=== PATIENT | female | born 1960 | race Two or more races ===

== ENCOUNTER 2022-08-13 08:32 | Outpatient (CLI) | payer OTHER | END 2022-08-13 08:45 | disposition home or self-care (01) | LOC: RAD 08:32 | PROVIDERS: ATTEND General Practice | DX: M75.51 Bursitis of right shoulder (principal); J20.9 Acute bronchitis, unspecified ==

== ENCOUNTER 2025-04-11 10:32 | Outpatient (CLI) | payer OTHER | END 2025-04-11 10:39 | disposition home or self-care (01) | LOC: RAD 10:32 → MAMO-SONO 10:32 | PROVIDERS: ATTEND General Practice | DX: I70.0 Atherosclerosis of aorta (principal) ==